=== PATIENT | male | born 1950 | race Caucasian/White ===

== ENCOUNTER → 2021-09-09 | Outpatient (CLI) | payer MEDICARE ==
--- NOTE | 2021-09-09 17:21 | Diagnostic Imaging Report ---
Clinical indications: Patient with dyspnea. Exam: Chest x-ray PA and lateral views. Comparisons: None. Findings: There is curvilinear and patchy airspace opacities involving the right lung which is most pronounced centrally and in the right perihilar regions. There is also patchy airspace opacities and curvilinear opacities involving the left perihilar region and left lung base. These findings are concerning for lung infiltrates. There is also a small right pleural effusion. There is no pneumothorax. Pulmonary vasculature and cardiac silhouette within normal limits. There are degenerative spurs involving the thoracic spine. IMPRESSION: 1. There is patchy areas of consolidation in curvilinear opacities involving both lungs with the right lung worse than the left, concerning for infectious or inflammatory process. Superimposed chronic lung changes cannot be completely excluded since no prior imaging is available for comparison. Comparison to prior chest x-rays or CT scan would help better evaluate for chronicity of these findings. CT scan of the chest with contrast may help better evaluate, if these are not known findings. 2: There is a small right pleural effusion. Dictated by: Dictated on workstation # [id number]
== END ==
LOC: RAD 15:34
PROVIDERS: ATTEND Internal Medicine Cardiovascular Disease
DX: J90 Pleural effusion, not elsewhere classified (principal); J98.4 Other disorders of lung
CPT/HCPCS: 71046

== ENCOUNTER → 2021-10-08 | Outpatient (CLI) | payer MEDICARE ==
--- NOTE | 2021-10-08 10:55 | Diagnostic Imaging Report ---
INDICATION: Dyspnea. COMPARISON: 09/09/2021 FINDINGS: Frontal and lateral radiographic views of the chest were obtained and show overall improved aeration of the right base. Right basilar effusion is much less prominent. There is also improved aeration the left mid and lower lung field. Coarse interstitial opacities persist bilaterally may be on the basis of underlying chronic interstitial lung disease. There is no pneumothorax on either side. Cardiac silhouette and pulmonary vasculature are within normal limits. Osseous structures show no gross acute abnormalities. IMPRESSION: 1. Improved aeration of left lung and diminished right basilar effusion. 2. Persistent scattered coarse interstitial opacities, which again may be on the basis of underlying chronic interstitial lung disease. Dictated by: Dictated on workstation # [id number]
== END ==
LOC: CARD 10:00
PROVIDERS: ATTEND Internal Medicine Cardiovascular Disease
DX: I08.0 Rheumatic disorders of both mitral and aortic valves (principal); R91.8 Other nonspecific abnormal finding of lung field
CPT/HCPCS: 71046; 93306